=== PATIENT | female | born 1970 | race Two or more races ===

== ENCOUNTER 2025-03-19 11:18 | Emergency (ER) | payer OTHER ==
[~2025-03-19] VITALS: Ht 170.2 cm; Wt 72.6 kg
[~2025-03-19 11:18] MED LIST: BACTROBAN22 GM TP; CELEBREX100 MG PO; DICLOFENAC EPO1 EACH TD; KETO10TA2 PO; MILLIPRED DP5 MG PO; SEPTRA DS TABLE1 TAB PO; SKELAXIN800 MG PO; SYNTHROID50 MCG
[2025-03-19] MEDS ORDERED: KETOROLAC TROMETHAMINE 60 MG VIAL IM ONE ×2 (12:28→12:30)
[2025-03-19] MEDS ORDERED: ORPHENADRINE CITRATE 30 MG/ML AMPUL ONE (12:28)
[2025-03-19] MEDS ORDERED: ORPHENADRINE CITRATE 30 MG/ML AMPUL IM ONE (12:30)
== END 2025-03-19 13:54 | disposition home or self-care (01) ==
LOC: ER 11:18
DX: S33.5XXA Sprain of ligaments of lumbar spine, initial encounter (principal); X58.XXXA Exposure to other specified factors, initial encounter; Y93.89 Activity, other specified; Y92.89 Other specified places as the place of occurrence of the external cause; Y99.9 Unspecified external cause status